=== PATIENT | female | born 1970 | race Caucasian/White ===

== ENCOUNTER 2017-07-13 03:18 | Emergency (ER) | payer OTHER | END 2017-07-13 03:40 | disposition home or self-care (01) | LOC: FTE 03:18 | DX: H66.91 Otitis media, unspecified, right ear (principal) | CPT/HCPCS: 99284; Z7502 ==

== ENCOUNTER 2017-12-20 12:14 | Emergency (ER) | payer OTHER ==
[2017-12-20] MEDS: METHYLPREDNISOLONE 125 MG INJ IM (14:54)
== END 2017-12-20 15:25 | disposition home or self-care (01) ==
LOC: FTE 12:14
DX: S80.862A Insect bite (nonvenomous), left lower leg, initial encounter (principal); W57.XXXA Bitten or stung by nonvenomous insect and other nonvenomous arthropods, initial encounter; Y92.9 Unspecified place or not applicable
CPT/HCPCS: 96372; 99284-25